=== PATIENT | female | born 1955 | race Caucasian/White ===

== ENCOUNTER 2016-12-02 09:37 | Outpatient (CLI) | payer OTHER ==
[2015-09-10 19:57] VITALS: BP 168/74
== END 2016-12-02 09:40 ==
LOC: LAB 09:37
PROVIDERS: ATTEND Family Medicine
DX: E11.9 Type 2 diabetes mellitus without complications (principal)
CPT/HCPCS: 36415; 83036

== ENCOUNTER 2017-03-11 10:05 | Outpatient (CLI) | payer OTHER ==
[2015-09-10 19:57] VITALS: BP 168/74
== END 2017-03-11 10:06 ==
LOC: LAB 10:05
PROVIDERS: ATTEND Family Medicine
DX: E11.9 Type 2 diabetes mellitus without complications (principal)
CPT/HCPCS: 36415; 83036

== ENCOUNTER 2017-10-05 10:16 | Outpatient (CLI) | payer OTHER ==
[2015-09-10 19:57] VITALS: BP 168/74
== END 2017-10-05 10:17 ==
LOC: LAB 10:16
PROVIDERS: ATTEND Family Medicine
DX: E11.9 Type 2 diabetes mellitus without complications (principal); E78.00 Pure hypercholesterolemia, unspecified
CPT/HCPCS: 36415; 80061; 83036

== ENCOUNTER 2018-04-05 10:15 | Outpatient (CLI) | payer OTHER ==
[2015-09-10 19:57] VITALS: BP 168/74
== END 2018-04-05 10:16 ==
LOC: LAB 10:15
PROVIDERS: ATTEND Family Medicine
DX: E11.9 Type 2 diabetes mellitus without complications (principal)
CPT/HCPCS: 36415; 83036

== ENCOUNTER 2018-07-05 10:02 | Outpatient (CLI) | payer OTHER ==
[2015-09-10 19:57] VITALS: BP 168/74
== END 2018-07-05 10:12 ==
LOC: LAB 10:02
PROVIDERS: ATTEND Family Medicine
DX: E11.9 Type 2 diabetes mellitus without complications (principal)
CPT/HCPCS: 36415; 83036

== ENCOUNTER 2018-12-24 12:03 | Outpatient (CLI) | payer OTHER ==
[2015-09-10 19:57] VITALS: BP 168/74
--- NOTE | 2018-12-24 21:43 | Diagnostic Imaging Report ---
[facility] [address] [facility] [address] [id number] Report Submission Date: Dec 24, 2018 12:56:03 PM CDT Patient Study Name: RANDAL SANTAMARIA Date: Dec 24, 2018 12:08:57 PM CDT Modality Type: DX Gender: F Description: CHEST 2VIEW : 51 Institution: [facility] Physician: KIM RUTHERFORD PA and lateral chest History: Cough PA and lateral chest dated December 24, 2018 is without prior radiographs for comparison. The cardiomediastinal silhouette is within normal limits. Pulmonary vascularity is normal. There is no pleural effusion. There is a small focus of asymmetric density at the right upper lobe. This finding probably represents summation of bronchovascular markings and osseous structures. A small right upper lobe infiltrate would not be excluded. Impression: Small density at the right upper lobe as described. Otherwise, no active disease. Electronically signed on Dec 24, 2018 12:56:03 PM CDT by: Katlyn CHAIREZ
== END 2018-12-24 12:05 ==
LOC: RAD 12:03
PROVIDERS: ATTEND Family Medicine
DX: R91.8 Other nonspecific abnormal finding of lung field (principal); R05 Cough
CPT/HCPCS: 71046